=== PATIENT | male | born 1980 | race Two or more races ===

== ENCOUNTER 2021-09-18 13:03 | Emergency (ER) | payer MEDICAID, SELFPAY ==
[2021-09-18 15:15] VITALS: BP 168/116; PULSE 75; RESP 16; O2SAT 99; BMI 31.0
--- NOTE | 2021-09-18 15:49 | ED.EYEPROB ---
HPI - Eye Problem General Chief complaint: Eye Problems Stated complaint: piece of metal in eye Time Seen by Provider: 09/18/21 15:49 Source: patient Mode of arrival: ambulatory Limitations: no limitations History of Present Illness HPI Narrative: Patient is a 41 year old male presenting to the emergency department today with concern that he has something in his right eye. 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 Patient denies any dizziness, lightheadedness, abdominal pain, nausea, vomiting, fever, chills, blurry vision, double vision, loss of vision, chest pain, difficulty breathing, shortness of breath, back pain, night sweats, pain with urination, increased urinary frequency, increased urinary urgency, blood in his urine or stool, syncope or a near syncopal episode, recent trauma or falls, bowel incontinence, bladder incontinence, bowel retention, bladder retention, or any other complaints at this time. MD chief complaint: eye pain Onset (ago): day(s) (2) Onset description: gradual Duration: constant Location: right eye Eye Symptoms: pain and foreign body sensation Place: work Mechanism: none Severity: mild Severity scale (1-10): 3 If Pain, Quality: aching Related Data Previous Rx's Medication Instructions Recorded erythromycin 5 mg/gram (0.5 %) eye 0.5 inch OPHTHALMIC (EYE) QID 5 09/18/21 ointment Days #3.5 g Allergies Allergy/AdvReac Type Severity Reaction Status Date / Time shrimp Allergy Unknown SWELLING Unverified 04/05/20 16:38 Shrimp Flavor Allergy Unknown Uncoded 01/04/18 00:00 Review of Systems Constitutional: Constitutional: Reports no additional constitutional complaints, Denies chills, Denies fever(s) and Denies night sweats Eyes: Eyes: Reports no additional eye complaints, Denies blurry vision, Denies change in vision, Denies diplopia, Denies eye discharge, Denies loss of vision and Denies eye pain Comments: foreign body sensation ENT: Denies dizziness Cardiovascular: Cardiovascular: Reports no additional cardiovascular complaints, Denies chest pain, Denies lightheadedness, Denies Loss of Consciousness and Denies dyspnea Respiratory: Respiratory: Reports no additional respiratory complaints and Denies dyspnea Gastrointestinal: Gastrointestinal: Reports no additional gastrointestinal complaints, Denies abdominal pain, Denies melena, Denies hematochezia, Denies change in bowel habits and Denies change in stool character Genitourinary: Genitourinary: Reports no additional male genitourinary complaints, Denies hematuria, Denies oliguria, Denies difficulty urinating, Denies dysuria, Denies urinary frequency, Denies urinary hesitancy, Denies urinary incontinence and Denies urinary urgency Musculoskeletal: Musculoskeletal: Reports no additional musculoskeletal complaints, Denies numbness and Denies tingling Neurologic: Denies dizziness, Denies loss of vision, Denies numbness and Denies tingling Psychiatric: Psychiatric: Reports no additional psychiatric complaints Endocrine: Endocrine: Reports no additional endocrine complaints Hematologic/Lymphatic: Hematologic/Lymphatic: Reports no additional hematologic/lymphatic complaints Allergic/Immunologic: Allergic/Immunologic: Reports no additional allergic/immunologic complaints PMFSH Past Medical History Attestation statement: The following information was validated with the patient. Source: old records reviewed Medical History HTN (hypertension) Social History Social History Advance Directives: No Advance Directives Information Provided: No Physical Exam Vital Signs: Vital Signs: Last Vital Signs Pulse 75 09/18/21 15:15 Resp 16 09/18/21 15:15 BP 168/116 H 09/18/21 15:15 Pulse Ox 99 09/18/21 15:15 BMI result Body Mass Index 31.0 Const: General: cooperative, no acute distress, alert and awake Nutritional Appearance: well nourished Orientation/consciousness: patient oriented x3 Limitations: no limitations HENMT: Head: Yes normal to inspection and Yes atraumatic Ears: hearing grossly normal bilaterally and external ears normal General nose exam: Normal external nose present, no nasal discharge noted and no epistaxis Face and sinus: Yes normal facial exam, No abrasion and No laceration Mouth: Normal oral and palatal mucosa present, no drooling and no muffled voice Eyes: General: appearance normal, both eyes and all related structures Periorbital: periorbital findings normal Eyelids: Yes eyelids normal Conjunctivae: conjunctivae normal Pupils: Equal, round and reactive pupils present EOM: EOMs intact bilaterally Neck: Neck: Yes normal visual inspection, Yes full ROM and Yes no lymphadenopathy Chest: Chest palpation & inspection: normal inspection of the chest Resp: Effort & Inspection: normal respiratory effort and able to speak in complete sentences GI: Inspection: Yes normal to inspection Neuro: General: patient oriented x3 and moves all extremities Cranial nerves: Yes Equal, round and reactive pupils present Cognition (Neuro): normal cognition Motor exam (neuro): 5/5 motor strength present throughout Sensory Exam: Normal double simultaneous stimulation for sensation Coordination: [id number] test normal Extrem: General: Yes normal to inspection, Yes full ROM and Yes capillary refill normal Psych: Appearance: grossly normal Mental Status: mental status grossly normal Affect: normal affect Attitude: cooperative Thought process: Normal thought process present Thought content: Normal thought content present Insight: Good insight present (Psych) MDM - Eye Problem MDM Narrative Medical decision making narrative: Patient is a 41 year old male presenting to the emergency department today with right eye pain. Patient's physical exam was unremarkable including a normal cornea and no retained foreign bodies. However, the patient is experiencing a foreign body sensation with possible metal exposure, so I will cover with antibiotic eye ointment and have the patient follow up with an automotive sales specialist. I explained my physical exam findings to the patient. I answered all questions asked by the patient. I stressed the importance of the patient taking his/using medication as prescribed. I stressed the importance of the patient following up with his primary care provider. I stressed the importance of the patient returning to the emergency department immediately if his symptoms were to worsen or if he were to develop any dizziness, shortness of breath, difficulty breathing, chest pain, blurry vision, loss of vision, nausea, vomiting, abdominal pain, fever, chills, back pain, or any other complaints. Patient verbalized agreement and understanding with this treatment plan and discharge. Differential Diagnosis Differential diagnosis: Likely corneal abrasion, conjunctivitis and corneal ulcer Medical Records Attestation: I reviewed the patient's medical records. Discharge Plan Discharge Clinical Impression: Corneal abrasion Patient Disposition: Home, Self-Care Instructions: Corneal Abrasion (DC) Additional Instructions: Follow up with Ophthalmology. Follow up with your primary care provider. Return to the emergency department immediately if your symptoms worsen or if you develop any dizziness, shortness of breath, difficulty breathing, chest pain, blurry vision, loss of vision, nausea, vomiting, abdominal pain, fever, chills, back pain, or any other complaints. Prescriptions: New erythromycin 5 mg/gram (0.5 %) ointment 0.5 inch ophthalmic (eye) QID 5 Days Qty: 3.5 0RF Referrals: Anival Agarwal [Physician] - 2 days Print Language: Khmer
[2021-09-18] MEDS: Fluorescein Sodium STRIP 1 STRIP EYE-RIGHT (16:47)
[2021-09-18] MEDS: Tetracaine HCl/PF 0.5% Oph Sol 4 ML DROPS 2 DROP EYE-RIGHT (16:47)
== END 2021-09-18 16:50 | disposition home or self-care (01) ==
PROVIDERS: Emergency Provider Emergency Medicine
DX: S05.01XA Injury of conjunctiva and corneal abrasion without foreign body, right eye, initial encounter (principal); X58.XXXA Exposure to other specified factors, initial encounter; I10 Essential (primary) hypertension; Y93.9 Activity, unspecified; Y92.9 Unspecified place or not applicable; Y99.9 Unspecified external cause status
CPT/HCPCS: 99283; 99284

== ENCOUNTER 2021-12-19 14:44 | Outpatient (REF) | payer MEDICAID, SELFPAY ==
[2021-12-19 15:46] LABS: Hematocrit 38.2 % (42.0-52.0); Hemoglobin 12.9 g/dl (14.0-18.0); Mean Corpuscular HGB Conc 33.8 g/dl (31.0-36.0); Mean Platelet Volume 10.1 fL (9.4-12.4); Platelet Count 235 X10*3/uL (160-400); Red Cell Distribution Width 13.6 % (11.0-16.0); White Blood Count 5.4 X10*3/uL (4.8-10.8)
[2021-12-19 16:04] LABS: Estimated Average Glucose 114 mg/dL; Hemoglobin A1c % 5.6 %
[2021-12-19 16:19] LABS: Alanine Aminotransferase 40 U/L (0-40); Albumin Level 4.5 g/dL (3.5-5.0); Alkaline Phosphatase 60 U/L (39-117); Anion Gap 14 (12-20); Aspartate Amino Transferase 30 U/L (5-37); Bilirubin Total 0.7 mg/dL (0.0-1.0); Blood Urea Nitrogen 14 mg/dL (9-16); Calcium 9.6 mg/dL (8.4-10.2); Carbon Dioxide 25 mmol/L (22-29); Chloride 104 mmol/L (96-108); Cholesterol 238 mg/dL; Estimated Glomerular Filt Rate > 60; Glucose Random 82 mg/dL (60-115); HDL Cholesterol 44 mg/dL; LDL Cholesterol Calculated 173 mg/dl; Potassium 3.6 mmol/L (3.3-5.1); Sodium 139 mmol/L (135-145); Total Protein 8.2 g/dL (6.5-8.0); Triglycerides 105 mg/dL
[2021-12-19 16:25] LABS: Creatinine Urine 229.65 mg/dL; Microalbum/Creatinine Ratio Ur 19.5 ug/mg cr
[2021-12-19 16:41] LABS: Vitamin D 25-OH Total 25.8 ng/mL (>30)
[2021-12-20 02:17] LABS: CT PCR NOT DETECTED (Not Detect.); NG PCR NOT DETECTED (Not Detect.)
[2021-12-20 08:02] LABS: HIV AB/AG Nonreactive (Nonreactive); HIV Num 1 0.09 S/CO (0.00-0.99)
[2021-12-20 08:05] LABS: ~HepC Num1 0.09 S/CO (0.00-0.79); ~Hepatitis C Antibody Nonreactive (Nonreactive)
[2021-12-20 08:22] LABS: Syphilis Screen Nonreactive (Nonreactive)
== END 2021-12-19 14:45 | disposition home or self-care (01) ==
LOC: HO.LAB 14:44
PROVIDERS: PCP Nurse Practitioner Primary Care; Visit Provider Nurse Practitioner Primary Care
DX: Z13.220 Encounter for screening for lipoid disorders (principal); Z11.3 Encounter for screening for infections with a predominantly sexual mode of transmission; Z11.4 Encounter for screening for human immunodeficiency virus [HIV]; Z13.1 Encounter for screening for diabetes mellitus; I10 Essential (primary) hypertension
CPT/HCPCS: 80053; 80061; 82043; 82306; 83036; 85027; 86780; 86803; 87389; 87491; 87591

== ENCOUNTER 2023-03-10 12:42 | Emergency (ER) | payer MEDICAID, SELFPAY ==
--- NOTE | ~2023-03-10 | XR_ITS ---
EXAMINATION: XR RIBS, RIGHT, PA CHEST CLINICAL INFORMATION: 08/30/2013 chest radiographs. COMPARISON: None available. TECHNIQUE: 3 views of the right ribs were obtained along with a PA view of the chest. A skin marker was placed over the inferior right ribs. FINDINGS: Lungs are clear. No consolidation, pneumothorax, or pleural effusion. The cardiomediastinal silhouette and pulmonary vasculature are normal. Osseous structures are unremarkable. Ribs are intact. No fractures are identified. XR/XR ribs RT min 3V w CXR1V IMPRESSION: Unremarkable examination.
[2023-03-10 12:51] VITALS: BP 138/88; PULSE 100; RESP 19; TEMP 36.6; O2SAT 95; BMI 33.2
--- NOTE | 2023-03-10 12:51 | ED.ABDPAIN ---
HPI - Abdominal Pain General Chief Complaint: General Medical Stated Complaint: R Side Pain No Injury Time Seen by Provider: 03/10/23 14:27 Source: patient Mode of arrival: ambulatory Limitations: no limitations History of Present Illness HPI narrative: Patient comes to the emergency room complaining of 3 days of right-sided chest pain. Patient states it is point tenderness, worse with deep inspiration laughing or leaning towards the left. Patient states that he has not been having any URI symptoms, denies shortness of breath but does have discomfort with deep inspirations. Patient states that he traveled to [place] 2 weeks ago. Related Data Previous Rx's Medication Instructions Recorded erythromycin 5 mg/gram (0.5 %) eye 0.5 inch ophthalmic (eye) QID 5 09/18/21 ointment days #3.5 grams ibuprofen 600 mg tablet 600 mg PO TID PRN fever or pain 03/10/23 #14 tabs Allergies Allergy/AdvReac Type Severity Reaction Status Date / Time shrimp Allergy Unknown SWELLING Verified 03/10/23 12:51 Shrimp Flavor Allergy Unknown Swelling Uncoded 03/10/23 12:51 Review of Systems Review of Systems Constitutional : No Weight loss, No Fever, No Chills, No Night Sweats, No Fatigue, No Malaise ENT/Mouth : No Hearing loss, No Ear Pain, No Nasal Congestion, No Sinus Pain, No Hoarseness, No sore throat, No Rhinorrhea, No Swallowing Difficulty Eyes: No Eye Pain, No Swelling, No Redness, No Foreign Body, No Discharge, No Vision Changes Cardiovascular : Patient complaining of point tenderness underneath the right nipple, No Chest Pain, No SOB, No Dyspnea on Exertion, No Orthopnea, No Edema, No Palpitations Respiratory : No Cough, No Sputum, No Wheezing, No Smoke Exposure, No Dyspnea Gastrointestinal : No Nausea, No Vomiting, No Diarrhea, No Constipation, No abdominal Pain, No Hematochezia, No Melena Genitourinary : no irregular bleeding, No Dysuria, No Urinary Frequency, No Hematuria, No Urinary Incontinence, No Urgency, No Flank Pain, No Urinary Flow Changes, No Hesitancy Musculoskeletal : No joint pain, No Myalgias, No Joint Swelling Skin : No Skin Lesions, No rash Neuro : No Weakness, No Numbness, No Paresthesias, No Loss of Consciousness, No Dizziness, No Headache Psych : No Anxiety/Panic, No Depression, No SI/HI/AH/VH, No Social Issues, Heme/Lymph: No Bruising, No Bleeding,No Lymphadenopathy Endocrine : No Polyuria, No Polydipsia, No Temperature Intolerance PENDING SALE TO [facility] Past Medical History Medical History HTN (hypertension) Social History Social History Advance Directives: No Advance Directives Information Provided: Yes Physical Exam ED Vital Signs: Vital Signs - 24 hr 03/10/23 12:51 Temperature 98 F Pulse Rate 100 Respiratory Rate 19 Blood Pressure 138/88 Pulse Oximetry 95 Oxygen Delivery Method Room Air BMI result Body Mass Index 33.2 Const Other: Appearance: Alert. Oriented X3. No acute distress. Eyes: Pupils equal, round and reactive to light. ENT: Pharynx normal. Neck: Normal inspection. Neck supple. No lymph nodes noted. No crepitus CVS: Normal heart rate and rhythm. Pulses normal. Normal S1 and S2 Respiratory: No respiratory distress. Breath sounds normal. No Wheezing. No rales Abdomen: Soft and nontender. No rigidity. No distention. Skin: Skin warm and dry. Normal skin color. Normal skin turgor. Extremities: No lower extremity edema. No Lacerations. No Rash Neuro: Oriented X 3. No motor deficit. No sensory deficit. Moving all extremities. No slurred speech. CN 2 through 12 grossly intact Psych: calm, cooperative, normal affect Course Course Course Narrative: RME: 43yo M w/PMHx HTN c/o RUQ abdominal pain x3 days, worse with deep breathing or laughing. Admits recently traveled to [place] 2 weeks ago. Admits to mild SOB. Denies N/V/D, fall/injury, hematuria, abdominal pain. Prior cigarette smoker, denies hx clots No appreciable rash, erythema or reproducible tenderness. Abdomen soft/nontender. No CVAT. EKG, Labs, UA, CXR ordered Full HPI, ROS and PE to be performed by primary ED provider. Medical Decision Making Medical Decision Making MDM Narrative: -my interpretation of labs: Normal white blood cell count, chemistry unremarkable -my interpretation of rib/chest x-ray: No infiltrates, no rib fractures -my interpretation EKG: Normal sinus rhythm, heart rate 95, no ST segment depression or elevation, no T-wave inversion, QTC 469 -D-dimer negative, troponin negative -patient's source of pain likely musculoskeletal -patient was given 1 dose of IM Toradol Differential Diagnosis Differential Diagnoses: The differential diagnosis associated with the presentation includes (Costochondritis, pleurisy, PE, musculoskeletal , pneumonia) Admission/Observation Consideration of admission/observation: Escalation of care including admission/observation considered (Patient has history of long travel, chest pain, admission being considered) Lab Data MDM Lab Attestation statement: I reviewed the patient's lab results. 03/10/23 13:08 03/10/23 13:08 Labs: Lab Results 03/10/23 03/10/23 03/10/23 Range/Units 13:08 13:08 13:08 WBC 7.4 (4.8-10.8) X10*3/uL RBC 4.88 (4.60-5.80) X10*6/uL Hgb 14.1 (14.0-18.0) g/dl Hct 41.2 L (42.0-52.0) % MCV 84.4 (80.0-98.0) fL MCH 28.9 (27.0-33.0) pg MCHC 34.2 (31.0-36.0) g/dl RDW 13.2 (11.0-16.0) % Plt Count 236 (160-400) X10*3/uL MPV 10.4 (9.4-12.4) fL Immature Gran % (Auto) 0.4 (0.0-0.4) % Neut % (Auto) 57.0 (45-73) % Lymph % (Auto) 31.7 (20-40) % Chaves % (Auto) 9.1 (2-11) % Eos % (Auto) 1.0 (0-4) % Baso % (Auto) 0.8 (0-2) % Lymph # (Auto) 2.3 (1.2-4.9) X10*3/uL Chaves # (Auto) 0.7 (0.1-1.2) X10*3/uL Eos # (Auto) 0.1 (0.0-0.4) X10*3/uL Baso # (Auto) 0.1 (0.0-0.2) X10*3/uL Abs Immat Gran (auto) 0.03 (0.00-0.03) X10*3/uL Absolute Neuts (auto) 4.2 (2.0-8.3) x10*3/uL Absolute Nucleated RBC 0.000 (0.0-0.012) X10*3/uL Nucleated RBC % (auto) 0.0 (0.0-0.2) /100WBC PT (11.1-13.3) SEC INR (0.9-1.1) D-Dimer High Sensitivty NG/ML Sodium 141 (135-145) mmol/L Potassium 3.7 (3.3-5.1) mmol/L Chloride 105 (96-108) mmol/L Carbon Dioxide 27 (22-29) mmol/L Anion Gap 13 (12-20) BUN 19 H (9-16) mg/dL Creatinine 1.03 (0.5-1.4) mg/dL Estim Creat Clear Calc 106.6 Estimated GFR > 60 Random Glucose 126 H (60-115) mg/dL Calcium 10.2 D (8.4-10.2) mg/dL Total Bilirubin 0.5 (0.0-1.0) mg/dL Direct Bilirubin 0.2 (0.0-0.5) mg/dL AST 25 (5-37) U/L ALT 31 (0-40) U/L Alkaline Phosphatase 56 (39-117) U/L Troponin I High Sens < 2.7 (<3.5-35.0) ng/L B-Natriuretic Peptide (<100) pg/mL Total Protein 8.7 H (6.5-8.0) g/dL Albumin 4.7 (3.5-5.0) g/dL Lipase 32 (8-78) U/L 03/10/23 03/10/23 Range/Units 13:08 13:08 WBC (4.8-10.8) X10*3/uL RBC (4.60-5.80) X10*6/uL Hgb (14.0-18.0) g/dl Hct (42.0-52.0) % MCV (80.0-98.0) fL MCH (27.0-33.0) pg MCHC (31.0-36.0) g/dl RDW (11.0-16.0) % Plt Count (160-400) X10*3/uL MPV (9.4-12.4) fL Immature Gran % (Auto) (0.0-0.4) % Neut % (Auto) (45-73) % Lymph % (Auto) (20-40) % Chaves % (Auto) (2-11) % Eos % (Auto) (0-4) % Baso % (Auto) (0-2) % Lymph # (Auto) (1.2-4.9) X10*3/uL Chaves # (Auto) (0.1-1.2) X10*3/uL Eos # (Auto) (0.0-0.4) X10*3/uL Baso # (Auto) (0.0-0.2) X10*3/uL Abs Immat Gran (auto) (0.00-0.03) X10*3/uL Absolute Neuts (auto) (2.0-8.3) x10*3/uL Absolute Nucleated RBC (0.0-0.012) X10*3/uL Nucleated RBC % (auto) (0.0-0.2) /100WBC PT 11.7 (11.1-13.3) SEC INR 1.0 (0.9-1.1) D-Dimer High Sensitivty < 150 NG/ML Sodium (135-145) mmol/L Potassium (3.3-5.1) mmol/L Chloride (96-108) mmol/L Carbon Dioxide (22-29) mmol/L Anion Gap (12-20) BUN (9-16) mg/dL Creatinine (0.5-1.4) mg/dL Estim Creat Clear Calc Estimated GFR Random Glucose (60-115) mg/dL Calcium (8.4-10.2) mg/dL Total Bilirubin (0.0-1.0) mg/dL Direct Bilirubin (0.0-0.5) mg/dL AST (5-37) U/L ALT (0-40) U/L Alkaline Phosphatase (39-117) U/L Troponin I High Sens (<3.5-35.0) ng/L B-Natriuretic Peptide < 10 (<100) pg/mL Total Protein (6.5-8.0) g/dL Albumin (3.5-5.0) g/dL Lipase (8-78) U/L Independent Interpretation I performed an independent interpretation of an: Plain X-Ray Radiology Impression Discussion of test interpretation with radiology: I have reviewed the radiologist's reading. Radiologist Impression: FINDINGS: Lungs are clear. No consolidation, pneumothorax, or pleural effusion. The cardiomediastinal silhouette and pulmonary vasculature are normal. Osseous structures are unremarkable. Ribs are intact. No fractures are identified. XR/XR ribs RT min 3V w CXR1V IMPRESSION: Unremarkable examination. Chronic Conditions Patient?s care impacted by: Hypertension Discharge Plan Discharge Clinical Impression: Atypical chest pain Patient Disposition: Home, Self-Care Instructions: Chest Wall Pain (ED) Additional Instructions: Please follow-up with your primary care physician tomorrow. If you have any worsening or new symptoms, please return to the emergency room or call 911 Prescriptions: New ibuprofen 600 mg tablet 600 mg PO TID PRN (Reason: fever or pain) Qty: 14 0RF No Action erythromycin 5 mg/gram (0.5 %) ointment 0.5 inch ophthalmic (eye) QID 5 Days Qty: 3.5 0RF
--- NOTE | 2023-03-10 12:54 | ECG_ITS ---
Test Reason : sob Blood Pressure : / mmHG Vent. Rate : 095 BPM Atrial Rate : 095 BPM P-R Int : 138 ms QRS Dur : 084 ms QT Int : 374 ms P-R-T Axes : 057 -14 007 degrees QTc Int : 469 ms Normal sinus rhythm Minimal voltage criteria for LVH, may be normal variant ( R in aVL ) Borderline ECG When compared with ECG of 17-NOV-2017 15:59, Heart rate has increased Referred By: Skye Tom Electronically Signed By:RIANA SANDOVAL
[2023-03-10 13:14] LABS: MANUAL DIFF FLAG NO
[2023-03-10 13:20] LABS: Basophils Absolute Auto 0.1 X10*3/uL (0.0-0.2); Basophils Percent Auto 0.8 % (0-2); Eosinophils Absolute Auto 0.1 X10*3/uL (0.0-0.4); Hematocrit 41.2 % (42.0-52.0); Hemoglobin 14.1 g/dl (14.0-18.0); Imm Gran Abs Auto 0.03 X10*3/uL (0.00-0.03); Imm Gran Pct Auto 0.4 % (0.0-0.4); Lymphocytes Absolute Auto 2.3 X10*3/uL (1.2-4.9); Lymphocytes Percent Auto 31.7 % (20-40); Mean Corpuscular HGB Conc 34.2 g/dl (31.0-36.0); Mean Corpuscular Hemoglobin 28.9 pg (27.0-33.0); Mean Corpuscular Volume 84.4 fL (80.0-98.0); Mean Platelet Volume 10.4 fL (9.4-12.4); Monocytes Absolute Auto 0.7 X10*3/uL (0.1-1.2); Monocytes Percent Auto 9.1 % (2-11); Neutrophils Absolute Auto 4.2 x10*3/uL (2.0-8.3); Platelet Count 236 X10*3/uL (160-400); Red Blood Count 4.88 X10*6/uL (4.60-5.80); Red Cell Distribution Width 13.2 % (11.0-16.0); White Blood Count 7.4 X10*3/uL (4.8-10.8)
[2023-03-10 13:25] LABS: Prothrombin Time 11.7 SEC (11.1-13.3)
[2023-03-10 13:35] LABS: Alanine Aminotransferase 31 U/L (0-40); Albumin Level 4.7 g/dL (3.5-5.0); Alkaline Phosphatase 56 U/L (39-117); Anion Gap 13 (12-20); Aspartate Amino Transferase 25 U/L (5-37); Bilirubin Direct 0.2 mg/dL (0.0-0.5); Bilirubin Total 0.5 mg/dL (0.0-1.0); Blood Urea Nitrogen 19 mg/dL (9-16); Calcium 10.2 mg/dL (8.4-10.2); Carbon Dioxide 27 mmol/L (22-29); Chloride 105 mmol/L (96-108); Creatinine Clr Calc Pharmacy 106.6; Estimated Glomerular Filt Rate > 60; Glucose Random 126 mg/dL (60-115); Lipase 32 U/L (8-78); Potassium 3.7 mmol/L (3.3-5.1); Sodium 141 mmol/L (135-145); Total Protein 8.7 g/dL (6.5-8.0)
[2023-03-10 13:40] LABS: B Type Natriuretic Peptide < 10 pg/mL (<100)
[2023-03-10 13:43] LABS: Troponin-I High Sensitivity < 2.7 ng/L (<3.5-35.0)
[2023-03-10 14:00] VITALS: BP 129/79; PULSE 80; RESP 16; O2SAT 97
--- NOTE | 2023-03-10 14:45 | PC.NURSE ---
reports r sided c/p x3 days. no sob/queen/dizziness. no n/v/f. he describes the pain as sharp.
[2023-03-10 14:56] LABS: D Dimer High Sensitivity < 150 NG/ML
--- NOTE | 2023-03-10 15:30 | PC.NURSE ---
cardiac work-up negative, pt cleared for discharge.
[2023-03-10] MEDS: Ketorolac Tromethamine 60 MG/2 ML VIAL IM (15:37)
== END 2023-03-10 15:45 | disposition home or self-care (01) ==
PROVIDERS: Physician Assistant; Emergency Provider Emergency Medicine; PCP Nurse Practitioner Primary Care
DX: R07.89 Other chest pain (principal); R06.02 Shortness of breath; I10 Essential (primary) hypertension
CPT/HCPCS: 36415; 71101; 80048; 80076; 83690; 83880; 84484; 85025; 85379; 85610; 93005; 96372; 99284; J1885

== ENCOUNTER 2023-07-01 22:42 | Emergency (ER) | payer SELFPAY ==
--- NOTE | 2023-07-01 | ECG_ITS ---
Test Reason : CHEST PAIN Blood Pressure : / mmHG Vent. Rate : 083 BPM Atrial Rate : 083 BPM P-R Int : 134 ms QRS Dur : 088 ms QT Int : 378 ms P-R-T Axes : 046 005 000 degrees QTc Int : 444 ms Normal sinus rhythm Normal ECG When compared with ECG of 10-MAR-2023 13:14, No significant change was found Referred By: Generic ED Physician Electronically Signed By:Heri Reza
--- NOTE | ~2023-07-01 | XR_ITS ---
EXAMINATION: XR CHEST CLINICAL INFORMATION: Pain. COMPARISON: Previous chest x-ray February 2022 TECHNIQUE: 2 views of the chest were obtained. FINDINGS: No significant abnormality is noted involving the heart, lungs, mediastinum, bony thorax or soft tissues. XR/XR chest 2V IMPRESSION: Unremarkable examination.
[2023-07-01 22:52] VITALS: BP 111/68; PULSE 87; RESP 16; TEMP 37.1; O2SAT 95; BMI 31.0
--- NOTE | 2023-07-01 23:10 | ED.NEUROSD ---
HPI - Neuro Symptoms/Deficit General Chief Complaint: Neuro Symptoms/Deficit Stated Complaint: NUMBNESS CRAMPING IN ARMS Time Seen by Provider: 07/01/23 22:59 Source: patient and RN notes reviewed Mode of arrival: EMS Limitations: no limitations History of Present Illness HPI Narrative: Pt is a 43yo male who presents to the ED with hot flashes, nausea, and a right hand cramp. Pt states he was asleep and woke up at around 1630 with hot flashes and nausea. He notes associated right hand cramping. He notes resolution of hand cramp and improvement of other sx since arrival in ED. He reports vomiting and having an episode of diarrhea earlier in the day. He also notes a dry mouth. Denies cp, SOB, abd. pain, or headaches. Notes a hx of anxiety and one similar incident awhile ago. Related Data Previous Rx's Medication Instructions Recorded erythromycin 5 mg/gram (0.5 %) eye 0.5 inch ophthalmic (eye) QID 5 09/18/21 ointment days #3.5 grams ibuprofen 600 mg tablet 600 mg PO TID PRN fever or pain 03/10/23 #14 tabs Allergies Allergy/AdvReac Type Severity Reaction Status Date / Time shrimp Allergy Unknown SWELLING Verified 05/21/23 14:32 Shrimp Flavor Allergy Unknown Swelling Uncoded 05/21/23 14:32 Review of Systems Constitutional: Constitutional: Denies chills, Reports excessive sweating (with hot flash), Denies fever(s) and Denies headache(s) Eyes: Eyes: Denies blurry vision ENT: Denies dizziness, Reports dry mouth and Denies headache(s) Cardiovascular: Cardiovascular: Denies chest pain and Denies dyspnea Respiratory: Respiratory: Denies dyspnea Gastrointestinal: Gastrointestinal: Denies abdominal pain, Denies constipation, Reports diarrhea, Reports nausea and Reports vomiting Musculoskeletal: Musculoskeletal: Reports arthralgias (right hand cramps) Neurologic: Denies dizziness, Denies headache(s) and Denies tremor(s) Psychiatric: Psychiatric: Reports anxiety Endocrine: Endocrine: Reports excessive sweating (with hot flash) PMFSH Past Medical History Medical History HTN (hypertension) Social History Social History (System 05/21/23 @ 14:32 by Delores Greenwood) Advance Directives: No Advance Directives Information Provided: No Physical Exam Vital Signs: Vital Signs: Last Vital Signs Temp 98.7 F 07/01/23 22:52 Pulse 87 07/01/23 22:52 Resp 16 07/01/23 22:52 BP 111/68 07/01/23 22:52 Pulse Ox 95 07/01/23 22:52 O2 Del Method Room Air 07/01/23 22:52 BMI result Body Mass Index 31.0 Const: General: cooperative, no acute distress, alert and awake Orientation/consciousness: patient oriented x3 HEENT: Head: Yes normal to inspection Ears: hearing grossly normal bilaterally General nose exam: Normal external nose present Face and sinus: Yes dry mucous membranes Resp: Effort & Inspection: normal respiratory effort and able to speak in complete sentences Auscultation: clear to auscultation bilaterally Cardio: Rate: regular rate Rhythm: regular rhythm Neuro: General: patient oriented x3 and CN's II-XI intact bilaterally Motor exam (neuro): 5/5 motor strength present throughout Extrem: General: Yes normal to inspection Right upper extremity: normal to inspection Left upper extremity: normal to inspection Medications Administered Generic Name Dose Route Start Last Admin Trade Name Freq PRN Reason Stop Dose Admin Sodium Chloride 1,000 mls @ 999 mls/hr 07/02/23 00:45 07/02/23 00:57 Ns IV 07/02/23 01:45 999 mls/hr .Q1H1M ROSANA Administration Discontinued Medications Generic Name Dose Route Start Last Admin Trade Name Freq PRN Reason Stop Dose Admin Diphenhydramine HCl 25 mg 07/02/23 00:43 07/02/23 00:56 Diphenhydramine Hcl 50 Mg/Ml Vial IVPUSH 07/02/23 00:44 25 mg ONCE ONE Administration Metoclopramide HCl 10 mg 07/02/23 00:43 07/02/23 00:56 Metoclopramide Hcl 10 Mg/2 Ml Vial IVPUSH 07/02/23 00:44 10 mg ONCE ONE Administration Medical Decision Making Medical Decision Making [facility] Narrative: 43-year-old male presents for evaluation of right arm cramping, dizziness, headache and hot flashes. His history appears most consistent anxiety, his symptoms resolved spontaneously. Denies having had any chest pain or shortness of breath currently or while he is experiencing his other symptoms. His EKG is nonischemic without arrhythmia. Plan for basic labs including a troponin, but I have a low suspicion for ACS. Will check for electrolyte abnormalities that could explain the patient's cramping symptoms Differential Diagnosis Differential Diagnoses: The differential diagnosis associated with the presentation includes (gastroenteritis, panic attack, flu, COVID, food poisoning) Lab Data 07/01/23 23:24 07/01/23 23:24 Labs: Lab Results 07/01/23 Range/Units 23:24 WBC 9.6 (4.8-10.8) X10*3/uL RBC 4.93 (4.60-5.80) X10*6/uL Hgb 14.1 (14.0-18.0) g/dl Hct 41.3 L (42.0-52.0) % MCV 83.8 (80.0-98.0) fL MCH 28.6 (27.0-33.0) pg MCHC 34.1 (31.0-36.0) g/dl RDW 13.2 (11.0-16.0) % Plt Count 219 (160-400) X10*3/uL MPV 10.2 (9.4-12.4) fL Immature Gran % (Auto) 0.2 (0.0-0.4) % Neut % (Auto) 85.1 H (45-73) % Lymph % (Auto) 7.1 L (20-40) % Shackelford % (Auto) 6.9 (2-11) % Eos % (Auto) 0.3 (0-4) % Baso % (Auto) 0.4 (0-2) % Lymph # (Auto) 0.7 L (1.2-4.9) X10*3/uL Shackelford # (Auto) 0.7 (0.1-1.2) X10*3/uL Eos # (Auto) 0.0 (0.0-0.4) X10*3/uL Baso # (Auto) 0.0 (0.0-0.2) X10*3/uL Abs Immat Gran (auto) 0.02 (0.00-0.03) X10*3/uL Absolute Neuts (auto) 8.2 (2.0-8.3) x10*3/uL Absolute Nucleated RBC 0.000 (0.0-0.012) X10*3/uL Nucleated RBC % (auto) 0.0 (0.0-0.2) /100WBC PT 12.3 (11.1-13.3) SEC INR 1.0 (0.9-1.1) APTT 29.7 (26.0-36.4) SEC Sodium 140 (135-145) mmol/L Potassium 3.3 (3.3-5.1) mmol/L Chloride 104 (96-108) mmol/L Carbon Dioxide 26 (22-29) mmol/L Anion Gap 13 (12-20) BUN 16 (9-16) mg/dL Creatinine 0.92 (0.5-1.4) mg/dL Estim Creat Clear Calc 115.4 Estimated GFR > 60 Random Glucose 136 H (60-115) mg/dL Calcium 9.2 D (8.4-10.2) mg/dL Total Bilirubin 0.7 (0.0-1.0) mg/dL AST 19 (5-37) U/L ALT 17 (0-40) U/L Alkaline Phosphatase 54 (39-117) U/L Troponin I High Sens < 2.7 (<3.5-35.0) ng/L Total Protein 8.1 H (6.5-8.0) g/dL Albumin 4.4 (3.5-5.0) g/dL Lipase 20 (8-78) U/L Independent Interpretation I performed an independent interpretation of an: EKG (Normal sinus rhythm with rate of 83 beats per minute. No ectopy or ischemic changes) Discharge Plan Discharge Clinical Impression: Dizziness, Paresthesia Patient Disposition: Home, Self-Care Instructions: Dizziness (ED) Additional Instructions: Your workup in the emergency department today was reassuring. Some fluids or blood work, EKG Stay well hydrated. Follow-up with your primary doctor Return for new or worsening symptoms Prescriptions: No Action erythromycin 5 mg/gram (0.5 %) ointment 0.5 inch ophthalmic (eye) QID 5 Days Qty: 3.5 0RF ibuprofen 600 mg tablet 600 mg PO TID PRN (Reason: fever or pain) Qty: 14 0RF
[2023-07-01 23:28] LABS: MANUAL DIFF FLAG NO
[2023-07-01 23:30] LABS: Basophils Percent Auto 0.4 % (0-2); Eosinophils Percent Auto 0.3 % (0-4); Hematocrit 41.3 % (42.0-52.0); Hemoglobin 14.1 g/dl (14.0-18.0); Imm Gran Abs Auto 0.02 X10*3/uL (0.00-0.03); Imm Gran Pct Auto 0.2 % (0.0-0.4); Lymphocytes Absolute Auto 0.7 X10*3/uL (1.2-4.9); Lymphocytes Percent Auto 7.1 % (20-40); Mean Corpuscular HGB Conc 34.1 g/dl (31.0-36.0); Mean Corpuscular Hemoglobin 28.6 pg (27.0-33.0); Mean Corpuscular Volume 83.8 fL (80.0-98.0); Mean Platelet Volume 10.2 fL (9.4-12.4); Monocytes Absolute Auto 0.7 X10*3/uL (0.1-1.2); Monocytes Percent Auto 6.9 % (2-11); Neutrophils Absolute Auto 8.2 x10*3/uL (2.0-8.3); Neutrophils Percent Auto 85.1 % (45-73); Platelet Count 219 X10*3/uL (160-400); Red Blood Count 4.93 X10*6/uL (4.60-5.80); Red Cell Distribution Width 13.2 % (11.0-16.0); White Blood Count 9.6 X10*3/uL (4.8-10.8)
[2023-07-01 23:38] LABS: Prothrombin Time 12.3 SEC (11.1-13.3)
[2023-07-01 23:40] LABS: Partial Thromboplastin Time 29.7 SEC (26.0-36.4)
[2023-07-01 23:59] LABS: Alanine Aminotransferase 17 U/L (0-40); Albumin Level 4.4 g/dL (3.5-5.0); Alkaline Phosphatase 54 U/L (39-117); Anion Gap 13 (12-20); Aspartate Amino Transferase 19 U/L (5-37); Bilirubin Total 0.7 mg/dL (0.0-1.0); Blood Urea Nitrogen 16 mg/dL (9-16); Calcium 9.2 mg/dL (8.4-10.2); Carbon Dioxide 26 mmol/L (22-29); Chloride 104 mmol/L (96-108); Creatinine Clr Calc Pharmacy 115.4; Estimated Glomerular Filt Rate > 60; Glucose Random 136 mg/dL (60-115); Lipase 20 U/L (8-78); Potassium 3.3 mmol/L (3.3-5.1); Sodium 140 mmol/L (135-145); Total Protein 8.1 g/dL (6.5-8.0)
[2023-07-02 00:06] LABS: Troponin-I High Sensitivity < 2.7 ng/L (<3.5-35.0)
[2023-07-02] MEDS: diphenhydrAMINE HCL 50 MG/ML VIAL 25 MG IVPUSH (00:56)
[2023-07-02] MEDS: Metoclopramide HCl 10 MG/2 ML VIAL IVPUSH (00:56)
[2023-07-02] MEDS: 0.9 % Sodium Chloride 1,000 ML 999 ML IV (00:57)
--- NOTE | 2023-07-02 01:31 | PC.NURSE ---
pt medicated per MAR
--- NOTE | 2023-07-02 01:43 | PC.NURSE ---
pt assessed, repoprted nausea and abd pain, medicated per MAR
== END 2023-07-02 01:56 | disposition home or self-care (01) ==
PROVIDERS: Physician Assistant; Emergency Provider Internal Medicine
DX: R42 Dizziness and giddiness (principal); R20.2 Paresthesia of skin; M79.601 Pain in right arm; R51.9 Headache, unspecified; R61 Generalized hyperhidrosis; F41.9 Anxiety disorder, unspecified; I10 Essential (primary) hypertension
CPT/HCPCS: 36415; 71046; 80053; 83690; 84484; 85025; 85610; 85730; 93005; 96361; 96374; 96375; 99284; J1200; J2765

== ENCOUNTER → 2023-07-01 23:00 | Outpatient (BNV) | payer SELFPAY | PROVIDERS: Emergency Provider Internal Medicine; Visit Provider Internal Medicine Cardiovascular Disease | DX: R07.9 Chest pain, unspecified (principal) | CPT/HCPCS: 93010 ==

== ENCOUNTER 2023-11-11 10:25 | Outpatient (REF) | payer MEDICAID, SELFPAY ==
[2023-11-11 10:52] LABS: MANUAL DIFF FLAG NO
[2023-11-11 11:50] LABS: Basophils Absolute Auto 0.1 X10*3/uL (0.0-0.2); Basophils Percent Auto 1.6 % (0-2); Eosinophils Percent Auto 0.7 % (0-4); Hematocrit 39.9 % (42.0-52.0); Hemoglobin 13.7 g/dl (14.0-18.0); Imm Gran Abs Auto 0.01 X10*3/uL (0.00-0.03); Imm Gran Pct Auto 0.2 % (0.0-0.4); Lymphocytes Absolute Auto 2.4 X10*3/uL (1.2-4.9); Lymphocytes Percent Auto 53.1 % (20-40); Mean Corpuscular HGB Conc 34.3 g/dl (31.0-36.0); Mean Corpuscular Hemoglobin 28.8 pg (27.0-33.0); Mean Platelet Volume 10.7 fL (9.4-12.4); Monocytes Absolute Auto 0.4 X10*3/uL (0.1-1.2); Monocytes Percent Auto 9.3 % (2-11); Neutrophils Absolute Auto 1.6 x10*3/uL (2.0-8.3); Neutrophils Percent Auto 35.1 % (45-73); Platelet Count 259 X10*3/uL (160-400); Red Blood Count 4.75 X10*6/uL (4.60-5.80); Red Cell Distribution Width 13.4 % (11.0-16.0); White Blood Count 4.5 X10*3/uL (4.8-10.8)
[2023-11-11 12:12] LABS: Estimated Average Glucose 114 mg/dL; Hemoglobin A1C 126.8344 umol/L; Hemoglobin A1c % 5.6 % (<6.0)
[2023-11-11 12:18] LABS: Creatinine Urine 181.15 mg/dL
[2023-11-11 12:28] LABS: Alanine Aminotransferase 21 U/L (0-40); Albumin Level 4.6 g/dL (3.5-5.0); Alkaline Phosphatase 51 U/L (39-117); Anion Gap 11 (12-20); Aspartate Amino Transferase 21 U/L (5-37); Bilirubin Total 0.5 mg/dL (0.0-1.0); Blood Urea Nitrogen 15 mg/dL (9-16); Calcium 9.9 mg/dL (8.4-10.2); Carbon Dioxide 28 mmol/L (22-29); Chloride 103 mmol/L (96-108); Cholesterol 198 mg/dL (<200); Estimated Glomerular Filt Rate > 60; Glucose Random 88 mg/dL (60-115); HDL Cholesterol 38 mg/dL (>40); LDL Cholesterol Calculated 144 mg/dL (<100); Potassium 3.4 mmol/L (3.3-5.1); Sodium 139 mmol/L (135-145); Total Protein 8.5 g/dL (6.5-8.0); Triglycerides 80 mg/dL (<150)
[2023-11-15 05:54] LABS: VITAMIN D (1,25 OH) D3 48 pg/mL; Vit D (1,25-Dihydroxy) Total 48 pg/mL (18-72); Vitamin D (1,25 OH) D2 <8 pg/mL
== END 2023-11-11 10:26 | disposition home or self-care (01) ==
LOC: HO.LAB 10:25
PROVIDERS: PCP Nurse Practitioner Primary Care; Visit Provider Nurse Practitioner Primary Care
DX: Z00.00 Encounter for general adult medical examination without abnormal findings (principal); Z13.220 Encounter for screening for lipoid disorders; I10 Essential (primary) hypertension
CPT/HCPCS: 36415; 80053; 80061; 82043; 82570; 82652; 83036; 85025

== ENCOUNTER 2024-06-08 06:19 | Day surgery (SDC) | payer OTHER, SELFPAY ==
[2024-06-06 13:27] VITALS: BMI 32.6
--- NOTE | 2024-06-07 08:45 | HO.ANESPROP2 ---
Documented by User: Lelo Sandoval NP 06/07/24 08:45 HPI - Anesthesia Eval Consult details Narrative: 44yo M for Colonoscopy [facility] Past Medical History Medical History HTN (hypertension) Surgical History Surgical History No pertinent past surgical history Social History Social History Household Members: Spouse Are you a primary health care marketing specialist to a significant other at home: No Do you presently have visiting nurse or other home services: No Patient Tobacco Use Status: Former Tobacco user Use of substances other than those prescribed or required for medical reasons: No Have you been hit, kicked, punched, or otherwise hurt by someone within the past year? If so, by whom?: No Are you DNR?: No Advance Directives: No Advance Directives Information Provided: Yes Recently lost weight without trying: No Nutrition Risks: No Nutritional Risk Meds Allergies Allergy/AdvReac Type Severity Reaction Status Date / Time shrimp Allergy Intermediate SWELLING Verified 06/06/24 13:24 Home Medications ?Medication ?Instructions ?Recorded ?Confirmed ?Last Taken ?Type cholecalciferol (vitamin D3) 50 50 mcg PO DAILY 06/06/24 06/06/24 Unknown History mcg (2,000 unit) capsule lisinopril 20 1 tab PO DAILY 06/06/24 06/08/24 06/08/24 05:30 History mg-hydrochlorothiazide 25 mg tablet melatonin 1 mg tablet 1 mg PO DAILY 06/06/24 06/06/24 Unknown History Exam Height,Weight and Vital Signs: Height 5 ft 9 in Weight 100.244 kg Assessment and Plan Assessment Anesthesia Assessment: Chart Reviewed Documented by User: Wilver Freed MD 06/08/24 07:16 [facility] Past Medical History Medical History HTN (hypertension) Family History Family history of problems with anesthesia: No Surgical History Surgical History No pertinent past surgical history History of Problems with Anesthesia: No Social History Social History Household Members: Spouse Are you a primary health care marketing specialist to a significant other at home: No Do you presently have visiting nurse or other home services: No Patient Tobacco Use Status: Former Tobacco user Use of substances other than those prescribed or required for medical reasons: No Have you been hit, kicked, punched, or otherwise hurt by someone within the past year? If so, by whom?: No Are you DNR?: No Advance Directives: No Advance Directives Information Provided: Yes Recently lost weight without trying: No Nutrition Risks: No Nutritional Risk Meds Allergies Allergy/AdvReac Type Severity Reaction Status Date / Time shrimp Allergy Intermediate SWELLING Verified 06/06/24 13:24 Home Medications ?Medication ?Instructions ?Recorded ?Confirmed ?Last Taken ?Type cholecalciferol (vitamin D3) 50 50 mcg PO DAILY 06/06/24 06/06/24 Unknown History mcg (2,000 unit) capsule lisinopril 20 1 tab PO DAILY 06/06/24 06/08/24 06/08/24 05:30 History mg-hydrochlorothiazide 25 mg tablet melatonin 1 mg tablet 1 mg PO DAILY 06/06/24 06/06/24 Unknown History Exam Airway Mallampati Class: Patient Non-Cooperative TM Dist: >3cm Assessment and Plan Assessment Anesthesia Assessment: Anesthesia Plan Discussed Final Anesthetic Review Family History of Problems with Anesthesia: No History of Problems with Anesthesia: No NPO: Yes ASA Class: II Final Preanesthetic Review: No Changes in Pt Med Stat, Meds/Allgs Chart Reviewed, Consent Obtained/Reviewed and Anes Risks/Benef Reviewed Patient Risk: Low Procedure Risk: Low Anesthetic Plan Anesthetic Plan: TIVA Disposition: Standard PACU
[2024-06-08 06:27] VITALS: BMI 31.6
[2024-06-08 06:43] VITALS: BP 127/87; PULSE 74; RESP 16; TEMP 36.6; O2SAT 98
[2024-06-08] MEDS: Lactated Ringers 1,000 ML 100 ML IVCONT (06:50)
[2024-06-08 08:32] VITALS: BP 123/77; PULSE 85; RESP 16; TEMP 36.2; O2SAT 97
--- NOTE | 2024-06-08 08:33 | PM.OP ---
Brief Operative Note Date of Service: 06/08/24 Pre-op diagnosis: Screening Post-op diagnosis: other (Polyps) Procedure: Colonoscopy to the cecum with bx/removal of polyp and cold snare polypectomy Surgeon: Darrell Bay MD Anesthesia: MAC Was an Board Saw Runner used for this Procedure?: No Estimated blood loss (mL): 2.0 Pathology: other (A. Polyp at 12cm B. Rectal polyp) Condition: stable Disposition: PACU
--- NOTE | 2024-06-08 08:44 | OP_ITS ---
DATE OF SERVICE: 06/08/2024 SURGEON: Darrell Bay MD INDICATIONS: The patient presents for evaluation of colorectal cancer screening. Full consent has been obtained from him for this, including risks of bleeding and perforation. PREOPERATIVE DIAGNOSIS: Colorectal cancer screening. POSTOPERATIVE DIAGNOSIS: PROCEDURE PERFORMED: Colonoscopy to cecum with cold snare polypectomy, and biopsy removal of polyp. ESTIMATED BLOOD LOSS: COMPLICATIONS: ANESTHESIA: Monitored anesthesia care. ASSISTANTS: SPECIMENS: POSTOPERATIVE DIAGNOSES: Colorectal cancer screening, colon polyps, internal hemorrhoids. DESCRIPTION OF PROCEDURE: The patient was placed in left lateral decubitus position. The digital rectal exam revealed no abnormalities. The Olympus video pediatric colonoscope was entered into the rectum and advanced easily to the cecum. Once in the cecum, I did identify normal-appearing cecal pouch with appendiceal orifice and a normal-appearing ileocecal valve. The entire cecum and ileocecal valve appeared normal. The scope was slowly withdrawn assessing all mucosal surfaces carefully. Preparation was excellent. At 12 cm was an approximately 5 mm polyp, which was removed by cold snare polypectomy, recovered by suction. The polypectomy site appeared clean, without any sign of residual polyp nor bleeding. In the rectum was a 3 mm polyp, which was biopsied and completely removed with cold biopsy forceps. I did not visualize any other polyps, colitis, nor angiodysplasia. In the rectum, scope was retroflexed visualizing some small internal hemorrhoids, but no other pathology. The rectal mucosa appeared normal. The scope was straightened and withdrawn from the patient. He tolerated the procedure well and was returned to recovery area in stable condition. IMPRESSION: 1. Colon polyps. 2. Internal hemorrhoids. PLAN: The results of the pathology will be checked. If either of the polyp is a tubular adenoma, I would recommend a followup colonoscopy in 5 years. If they are both hyperplastic, I would recommend a followup coloscopy in 10 years. He will otherwise see me on a p.r.n. basis. He was advised not to use any aspirin and NSAIDs for 1 week. MD EZIO Davis/GERA / [id number]
[2024-06-08 08:45] VITALS: BP 130/85; PULSE 67; RESP 18; O2SAT 99
[2024-06-08 09:01] VITALS: TEMP 36.3
== END 2024-06-08 09:25 | disposition home or self-care (01) ==
PROVIDERS: PCP Nurse Practitioner Primary Care; Visit Provider Internal Medicine
PROC: 0DJD8ZZ Inspection of Lower Intestinal Tract, Via Natural or Artificial Opening Endoscopic (ICD-10-PCS; CPT 45378; principal; 2024-06-08 07:30)
DX: Z12.11 Encounter for screening for malignant neoplasm of colon (principal); D12.8 Benign neoplasm of rectum; K63.5 Polyp of colon; K64.8 Other hemorrhoids; I10 Essential (primary) hypertension; Z79.899 Other long term (current) drug therapy; Z87.891 Personal history of nicotine dependence
CPT/HCPCS: 45385; 45380; 88305; J2003; J2704

== ENCOUNTER 2025-06-02 07:14 | Outpatient (REF) | payer OTHER, SELFPAY ==
--- OUTSIDE RECORDS SUMMARY | 2024-06-08 02:30 | XMS_ITS ---
Author Organization [facility] Address [address] [place] [id number] Care Team Providers Care Medical Geneticist Name Role Phone EMILI HUYNH N.P. Primary Care Provider Darrell Elam [phone] REASON FOR VISIT SCREENING COLON Encounters Encounter Location Date Provider [place] [facility] [place] [address] [place] [phone] 06/08/2024 Darrell Bay Colon cancer scree marco a Z12.11 ; Colon polyps K63.5 and Other hemorrhoids K64.8 Assessments Encounter Date Diagnosis (ICD Code) Assessment Notes Treatment Notes Treatment Clinical Notes Section Notes 06/08/2024 Colon cancer screening (ICD-10 - Z12.11) 06/08/2024 Colon polyps (ICD-10 - K63.5) 06/08/2024 Other hemorrhoids (ICD-10 - K64.8) Plan Of Treatment No Information Progress Notes * HERRERALATOYA BONEMYAOB: [birth year] (45 yo M)Acc No.[id number]:06/08/2024 COLON WITH MAC Patient: SIMRAN CHAMBERLAIN Provider: Sabino Bay MD :1980 A ge:44 Y S ex:Male Date:06/08/2024 Address:[address] [place], [place] [id number] Pcp:EMILI HUYNH N.P. Subjective: * Chief Complaints: * 1 . SCREENING COLON. * Medical History: Objective: * Vitals: Assessment: * Assessment: 1. C olon cancer screening - Z12.11 (Primary) 2 . C olon polyps - K63.5? 3. O ther hemorrhoids - K64.8 Plan: * Treatment: * Procedure Codes: 4 5385 LESION REMOVAL COLONOSCOPY, Modifiers: 33 , 25641 COLONOSCOPY AND BIOPSY, Modifiers: 59 , 33 * * The named appointment provid er may or may not be the originator of this progress note, and it is not deemed complete until electronically signed by the appointment provider. Sign off status: Pending * Provider: Sabino Bay MD Date: 08/08/2023 Generated for Earline power/Gege/Luzitting on: 08/02/2024 07:17 AM EST
--- OUTSIDE RECORDS SUMMARY | 2025-06-02 07:18 | XMS_ITS | Patient Health Record ---
Author Organization [facility] Address [address] [place] [address] Care Team Providers Care Master Control Technician Name Role Phone EMILI HUYNH N.P. Primary Care Provider Darrell Elam [phone] Allergies Allergen (clinical drug ingredient) Drug/Non Drug Allergy documented on EMR Reaction Allergy Type Onset Date Status shrimp allergenic extract Shrimp (Diagnostic) Unknown Drug Allergy Active Results Component Value Reference Range Notes Pathology (Not yet reviewed by provider) Interpretation: Performing Lab:[facility], [address] [place] [id number] Notes/Report: Reason For Referral No Information Medications Medication SIG (Take, Route, Frequency, Duration) Notes Start Date End Date Status Lisinopril-hydroCHLOROthia zide 20-25 MG Oral; Duration: 90 Active MiraLax (colon prep) 17 GM/SCOOP 1 238Gm bottle mixed with Gatorade or Crystal Light Orally begin at 5:00 p.m. the day before the procedure; Duration: 1 day 02/03/2024 Activ e Vitamin D3 50 MCG (1999) Oral; Duration: 90 Active Dulcolax (colon prep) 5 MG take at 3:00 p.m and 7:00p.m. Orally two tablets twice a day for one day; Duration: 1 day 02/03/2024 Active Melatonin 1 MG Oral; Duration: 90 Active Immunizations Vaccine Route Administration Date Status Comme nts Influenza Unknown 02/03/2024 Refused Social History Tobacco Use: Social History Observation Description Date Details (start date - stop date) Former Smoker NA - NA Tobacco Use/Smoking Question Answer Notes Patient is a former smoker Alcohol Screen Question Answer Notes Did you have a drink contain ing alcohol in the past year? Yes How often did you have a dri nk containing alcohol in the past year? Monthly or less (1 point) How many drinks did you have on a typical day when you were drinking in the past year? 1 or 2 drinks (0 point) How often did you have 6 or more drinks on one occasion in the past year? Never (0 point) Points 1 Interpretation Negative Section Notes: Nonsmoker; no sig alcohol Problems Problem Type SNOMED Code ICD Code Onset Dates Problem Status W/U Status Risk Notes Problem Colon cancer screening (914895354) Colon cancer screening (Z12.11) Active confirmed Problem Pre-procedure evaluation check (620951864) Encounter for other preprocedural examination (Z01.818) Active confirmed Encounters Encounter Location Date Provider Diagnosis [facility] [place] [address] [place] [phone] 06/08/2024 Darrell Bay Colon cancer scree marco a Z12.11 ; Colon polyps K63.5 and Other hemorrhoids K64.8 Assessments Encounter Date Diagnosis (ICD Code) Assessment Notes Treatment Notes Treatment Clinical Notes Section Notes 06/08/2024 Colon cancer screening (ICD-10 - Z12.11) 06/08/2024 Colon polyps (ICD-10 - K63.5) 06/08/2024 Other hemorrhoids (ICD-10 - K64.8) Plan Of Treatment Pending Test Test Name Order Date Pathology 06/08/2024 Future Test Test Name Order Date COLONOSCOPY 02/03/2024 Insurance Providers Payer Name Payer Address Payer Phone Subscriber Number Group Number Insured Name Patient Relationship to Insured Coverage Start Date Coverage End Date [facility] [address] [address] [place], [place] [id number] SIMRAN HERRERA Self - patient is the insured Medical (General) History Medical History History ICD Code Denies AL,DM,CVA,Lung disease,renal dise ase HTN Surgical History Surgery Date(Month/Year)
--- OUTSIDE RECORDS SUMMARY | 2025-06-02 07:18 | XMS_ITS | Clinical Summary ---
Author Organization [employer] Address [address] [place] [address] [address] [place] [address] Care Team Providers Care Reed Press Feeder Name Role Phone Ritika Mederos Primary Care Provider [phone] Allergies Active Allergy Reactions Criticality Noted Date Comments Shrimp Flavor Agent (Non-Screening) 08/23/2024 Medications * This document contains information received from the source organization and may not represent a complete record from that organization. ibuprofen 600 MG tabletIndication s:Pain TAKE 1 TABLET BY MOUTH THREE TIMES A DAY NEEDED WITH FOOD 60 tablet 3 Active lisinopril-hydro CHLOROthiazide 20-25 MG tabletIndication s:Essential hypertension TAKE 1 TABLET BY MOUTH EVERY DAY 90 tablet 3 5 Active melatonin tabletIndication s:Difficulty sleeping TAKE 1 TABLET BY MOUTH DAILY 30 MIN-1HOUR BEFORE SLEEP 90 tablet 1 5 Active melatonin tabletIndication s:Difficulty sleeping TAKE 1 TABLET BY MOUTH DAILY 30 MIN-1HOUR BEFORE SLEEP 90 tablet 1 5 025 Discontinued Active Problems Problem Noted Date Diagnosed Date Encounter for counseling 10/29/2023 Vitamin D deficiency 08/12/2018 Essential hypertension 02/28/2016 Encounters Date Type Department Care Team Description 05/10/2025 Refill [facility] [address] [place] [address] Ritika Mederos ANP Difficulty sleeping 04/20/2025 Telephone [facility] [address], [place] [phone] Ritika Mederos ANP sammy recall 03/16/2025 Telephone [facility] [address] [place], [place] [phone] Ritika Mederos ANP sleep study order 03/07/2025 9:45 AM EDT Office Visit [facility] [address] [place] [phone] Ritika Mederos ANP Healthcare maintenance (Primary Dx); Daytime somnolence; Witnessed episode of apnea; Essential hypertension 03/07/2025 Travel 03/06/[address] [address] Ritika Mederos ANP Chart Prep 03/06/2025 Telephone [facility] [address] [place] [address] Ritika Mederos ANP Insurance from Last 3 Months Immunizations Immunization Administration Dates Next Due Hep A, Adult 08/07/2010,10/07/2006 Hep B, adult 03/01/2007,11/06/2006,10/07/2006 Influenza injectable quadriv alent preservative free 08/12/2018 Influenza, Split (incl. zion fied surface antigen) 08/26/2013 TD (adult), 2 Lf tetanus tox oid, preservative free, adsorbed 08/06/2006 Td (adult), 5 Lf tetanus tox oid, preservative free, adsorbed 03/04/2017 Tdap 08/07/2010 Family History Medical History Relation Name Comments Cancer Brother gastric cancer Relation Name Status Comments Brother Social History Tobacco Use Types Packs/Day Years Used Date Smoking Tobacco: Former Cigarettes Q uit: 2019 Passive Smoke Exposure: Past Smokeless Tobacco: Never Tobacco Cessation:Counseling Given: Not Answered Comments:Smoked 1/2 PPD for 23 yrs (from age [age]) Alcohol Use Standard Drinks/Week Comments Yes 0 (1 standard drink = 0.6 oz pur e alcohol) occasionally Depression Answer Date Recorded Patient Health Questionnaire-9 Score 8 03/07/2025 Patient Health Questionnaire-9 Score 8 03/07/2025 Last PHQ-9: Questionnaire Data Not on file 0 03/07/2025 Housing Stability Answer Date Recorded What is your housing situation today? I have gustavo douglass 03/07/[address] you li ve. Do you have problems with any of the following? None of the above 03/07/2025 Food Insecurity Answer Date Recorded Within the past 12 months, y ou worried that your food would run out before you got money to buy more: Never True 03/07/2025 Within the past 12 months,th e food you bought just didn't last and you didn't have enough money to get more: Never True Transportation Answer Date Recorded In the past 12 months, has l ack of transportation kept you from medical appts, meetings, work or from getting things needed for daily living? No 03/07/2025 Utilities Answer Date Recorded In the past 12 months, has t he electric, gas, oil or water company threatened to shut off services in your home? No 03/07/2025 Depression Answer Date Recorded Patient Health Questionnaire-2 Score 1 03/07/2025 Internet Access Answer Date Recorded Internet Access Q1 Yes 03/07/2025 Internet Access Q2 Not on file 03/07/2025 Sex and Gender Information Value Date Recorded Sex Assigned at Male 05/19/2022 10:15 AM EDT Legal Sex Male 10:15 AM EDT Gender Identity Male 05/19/2022 10:15 AM EDT Sexual Orientation Straight 05/19/2022 10 :15 AM EDT Last Filed Vital Signs Vital Sign Reading Time Taken Comments Blood Pressure 138/98 03/07/2025 10:24 AM EDT Pulse 80 03/07/2025 9:50 AM EDT Temperature 36.4 C (97.6 F) 03/07/2025 9:50 AM EDT Respiratory Rate 22 03/07/2025 9:50 AM EDT Oxygen Saturation - - Inhaled Oxygen Concentration - - Weight 102 kg (225 lb 3.2 oz) 03/07/2025 9:50 AM EDT Height 175.3 cm (5' 9 ) 03/07/2025 9:50 AM EDT Body Mass Index 33.26 03/07/2025 9:50 AM EDT Plan of Treatment Upcoming Encounters Date Type Department Care Team (Late st Contact Info) Description 07/07/2025 1:30 PM EST Office Visit [facility] [address], [place] [phone] Ritika Mederos ANP [address] [place], [place] [phone] Health Maintenance Due Date Last Done Comments CT Colonography 1978 FIT DNA/Cologuard 1978 FIT 1978 FOBT 1978 Sigmoidoscopy 1978 Family Planning (PISQ) 1993 COVID-19 Vaccine (1 - 2024-2 6 season) 2025 Influenza Vaccine (#1) 2025 9, 08/26/2013 Alcohol/Substance Use Screening 03/07/2026 03/07/2025 Depression Screening 03/07/2026 03/07/2025, 03/07/2025 Disability Screening 03/07/2026 03/07/2025 SDOH Screening 03/07/2026 03/07/2025 Tobacco Screening 03/07/2026 03/07/2025 DTaP/Tdap/Td Vaccines (3 - T d or Tdap) 03/04/2027 03/04/2017, 08/07/2010, 08/06/2006 Zoster Vaccines (1 of 2) 2028 Lipid Panel 11/10/2028 11/11/2023, 12/19/2021 Colonoscopy 06/11/2029 06/11/2024 Colorectal Cancer Screening 06/11/2029 RSV Patients and Patients Aged 60 years or older (1 - 1-dose 75+ series) 2053 Hepatitis B Vaccines Completed 03/01/2007, 11/06/2006, 10/07/2006 Hepatitis A Vaccines Aged Out 08/07/2010, 10/07/2006 No longer eligible based on patient's age to complete this topic HIV Screening Completed 12/19/2021 Hepatitis C Screening Completed 12/19/2021 HIB Vaccines Aged Out No longer eligi ble based on patient's age to complete this topic HPV Vaccines Aged Out No longer eligi ble based on patient's age to complete this topic IPV Vaccines Aged Out No longer eligi ble based on patient's age to complete this topic Meningococcal B Vaccine Aged Out No l onger eligible based on patient's age to complete this topic Meningococcal Vaccine Aged Out No mariah sonia eligible based on patient's age to complete this topic Pneumococcal Vaccine: Pediatrics (0 to 5 Years) and At-Risk Patients (6 to 49) Years Aged Out No longer eligible b ased on patient's age to complete this topic RSV under 20 months Aged Out No longe r eligible based on patient's age to complete this topic Rotavirus Vaccines Aged Out No longer eligible based on patient's age to complete this topic Procedures Procedure Name Priority Date/Time Associated Diagnosis Comments COLONOSCOPY Routine 06/11/2024 LIPID PANEL, STANDARD Routine 11/11/2023 10:51 AM EDT Lipid screening ZZZ HISTORICAL HEPATITIS C ANTIBODY RFLX Routine 12/19/2021 3:03 PM EDT ZZZ HISTORICAL HIV AB/AG Routine 12/19/2021 3:03 PM EDT from Last 3 Months or Most Recently Relevant to Health Maintenance Results * Colonoscopy (06/11/2024) Colonoscopy Normal Normal Narrative Lynn Lopez - 06/11/2024 Pathology results : one hyperplastic one tubular adenoma . Recommended repeat 5 years Historical Provider MD HEALTH MAINTENANCE Final Result * (ABNORMAL) Lipid Panel, Standard (11/11/2023 10:51 AM EDT) Triglycerides 80 <150 mg/dL [facility] Comment:Desirable Triglyceri de: less than 150 mg/dLBorderline High Triglyceride 150-199 mg/dLHigh Triglyceride: 200-499 mg/dLVery High Triglyceride: greater than or equal to 5OO mg/dL Cholesterol 198 <200 mg/dL [facility] Comment:Desirable Cholestero l: less than 200 mg/dLBorderline High Cholesterol: 200-239 mg/dLHigh Cholesterol: greater than 239 mg/dL LDL Cholesterol Calculated 144(H) <100 mg/dL [facility] Comment:Desirable LDL: less than 100 mg/dLNear Optimal/Above Optimal LDL: 110- 129 mg/dLBorderline High LDL: 130-159 mg/dLHigh LDL: 160-189 mg/dLVery High LDL: greater than or equal to 190 mg/dL HDL Cholesterol 38(L) >40 mg/dL [facility] Comment:Desirable HDL: great er than 40 mg/dL Note: This HDL assay may give artificially low results in patients with liver disease. Blood Venous blood specimen / Unknown 11/11/2023 10:51 AM EDT 11/11/2023 10:51 AM EDT Ritika COOK LAB BLOOD ORDERABLES Final Resul t Performing Organization Address City/[facility] Co de Phone Number [facility] [address] [place] [address] [phone] * HEPATITIS C ANTIBODY RFLX (12/19/2021 3:03 PM EDT) Pathologist [facility] Hepatitis C Antibody Nonreactive Nonreactive [facility] Comment: Antibodies to HCV not detected; does not exclude early acute HCV infection. 12/19/2021 3:03 PM EDT Ritika Mederos ANP HISTORICAL/NON ORDERABLE LABS Fi nal Result Performing Organization Address [facility] [address] * HIV AB/AG (12/19/2021 3:03 PM EDT) Pathologist [facility] HIV AB/AG Nonreactive Nonreactive [facility] Comment: HIV-1 p24 Ag and/or HIV-1/HIV-2 Ab not detected. A test result that is nonreactive does not exclude the possibility of exposure to or infection with HIV-1 and/or HIV-2. Nonreactive results in this assay for individuals with prior exposure to HIV-1 and/or HIV-2 may be due to antigen and antibody levels that are below the limit of detection of this assay. The [facility] Admissions Consultant HIV Ag/Ab Combo assay result and supplemental assay results should be interpreted in conjunction with the patient's clinical presentation, history and other laboratory results. If the results are inconsistent with clinical evidence, additional testing is suggested to confirm the result. 12/19/2021 3:03 PM EDT us Ritika Mederos ANP HISTORICAL/NON ORDERABLE LABS Fi nal Result Performing Organization Address [facility] de Phone Number [facility] [address] from Last 3 Months or Most Recently Relevant to Health Maintenance Insurance [facility] 3 Care Teams Reed Press Feeder Relationship Specialty Start Date End Date Ritika Mederos ANP [address] [place] [phone] PCP - General Family Medicine 08/29/20
--- OUTSIDE RECORDS SUMMARY | 2025-06-02 07:18 | XMS_ITS | Encounter Summary ---
Author Organization [employer] Address [address] [facility] [address]t [place] [address] Care Team Providers Care Restorer [employer] Name Role Phone Ritika Mederos Primary Care Provider [phone] Encounter Details Date Type Department Care Team (Late st Contact Info) Description 01/06/2023 Orders Only [facility] [address] [place] [address] Gloria Frias LPN Social History Tobacco Use Types Packs/Day Years Used Date Smoking Tobacco: Never Assessed Sex and Gender Information Value Date Recorded Sex Assigned at Male 05/19/2022 10:15 AM EDT Legal Sex Male 10:15 AM EDT Gender Identity Male 05/19/2022 10:15 AM EDT Sexual Orientation Straight 05/19/2022 10 :15 AM EDT documented as of this encounter Plan of Treatment Upcoming Encounters Date Type Department Care Team (Late st Contact Info) Description 07/07/2025 1:30 PM EST Office Visit [facility] [address] [place] [address] Ritika Mederos ANP [address] [place] [address] documented as of this encounter Procedures Procedure Name Priority Date/Time Associated Diagnosis Comments D DIMER HIGH SENSITIVITY Routine 03/10/2023 1:08 PM EDT HIGH SENSITIVITY TROPONIN I Routine 03/10/2023 1:08 PM EDT CBC WITH AUTO DIFFERENTIAL Routine 03/10/2023 1:08 PM EDT PROTHROMBIN TIME-INR Routine 03/10/2023 1:08 PM EDT B TYPE NATRIURETIC PEPTIDE (BNP) Routine 03/10/2023 1:08 PM EDT LIPASE Routine 03/10/2023 1:08 PM EDT HEPATIC FUNCTION PANEL Routine 03/10/2023 1:08 PM EDT BASIC METABOLIC PANEL Routine 03/10/2023 1:08 PM EDT documented in this encounter Results * D Dimer High Sensitivity (03/10/2023 1:08 PM EDT) [facility] D Dimer High Sensitivity <150 NG/ML [facility] Comment:D-DIMER HS REFERENCE RANGENote: Our assay reports D-Dimer Units (D- DU).The cut-off value for venous thromboembolic (VTE) disease is230 ng/mL. This value has a very high negative predictivevalue when the patient has a low to moderate clinicalprobability of VTE.The upper limit of normal is 243 ng/mL. 03/10/2023 1:08 PM EDT 03/10/2023 1:12 PM EDT us Generic External Data Provider LAB BLOOD ORDERAB LES Final Result [facility] [address] [place] [phone] * High Sensitivity Troponin I (03/10/2023 1:08 PM EDT) [facility] TROPONIN I HIGH SENSITIVITY <2.7 <3.5 - 35.0 ng/L [facility] Comment:The Ramos high sens itivity Troponin-I results should beused in conjunction with other diagnostic information suchas ECG, clinical observations and information, and patientsymptoms to aid in the diagnosis of [place]. 03/10/2023 1:08 PM EDT 03/10/2023 1:12 PM EDT [facility] External Provider LAB BLO OD ORDERABLES Final Result Performing Organization Address [facility] Co de Phone Number [facility] [address] [place] [address] [phone] * B Type Natriuretic Peptide (BNP) (03/10/2023 1:08 PM EDT) [facility] B Type Natriuretic Peptide <10 <100 pg/mL [facility] Comment:For those patients w ho are being treated with Natrecor(nesiritide, recombinant BNP), BNP testing should beperformed at least two hours post treatment in order toensure that only endogenous levels of BNP are detected. 03/10/2023 1:08 PM EDT 03/10/2023 1:12 PM EDT [facility] External Provider LAB BLO OD ORDERABLES Final Result Performing Organization Address [facility] Co de Phone Number [facility] [address] [place] [address] [phone] * Lipase (03/10/2023 1:08 PM EDT) [facility] Lipase 32 8 - 78 U/L [facility] 03/10/2023 1:08 PM EDT 03/10/2023 1:12 PM EDT Generic External Data Provider LAB BLOOD ORDERAB LES Final Result Performing Organization Address [facility] Co de Phone Number [facility] [address] [place] [address] [phone] * (ABNORMAL) Basic Metabolic Panel (03/10/2023 1:08 PM EDT) [facility] Sodium 141 135 - 145 mmol/L [facility] Potassium 3.7 3.3 - 5.1 mmol/L [facility] Chloride 105 96 - 108 mmol/L [facility] Carbon Dioxide 27 22 - 29 mmol/L [facility] Anion Gap 13 12 - 20 [facility] Urea Nitrogen (BUN) 19(H) 9 - 16 mg/dL [facility] Creatinine, Serum 1.03 0.5 - 1.4 mg/dL [facility] Creatinine Clr Calc Pharmacy 106.6 [facility] Comment:eGFR (calculated fro m the MDRD study equation) and eCrCl(calculated from the Cockcroft-Gault equation) are based ondifferent parameters and may not yield comparable results.If eCrCl result is absurd, please check patient'sheight/weight. Estimated Glomerular Filt Rate >60 [facility] Comment:NOTE: For -Am erican individuals, multiply the result by 1.210.Chronic Kidney Disease: Estimated GFR < 60 mL/min/1.10m0Vkwzca Kidney Disease: Estimated GFR < 15 mL/min/1.73m2 Glucose 126(H) 60 - 115 mg/dL [facility] Calcium 10.2 8.4 - 10.2 mg/dL [facility] 03/10/2023 1:08 PM EDT 03/10/2023 1:12 PM EDT us Generic External Data Provider LAB BLOOD ORDERAB LES Final Result [facility] [address] [place] [address] [phone] * (ABNORMAL) Hepatic Function Panel (03/10/2023 1:08 PM EDT) Bilirubin, Total 0.5 0.0 - 1.0 mg/dL [facility] Bilirubin, Direct 0.2 0.0 - 0.5 mg/dL [facility] Aspartate Amino Transferase 25 5 - 37 U/L [facility] Alanine Aminotransferase 31 0 - 40 U/L [facility] Total Protein 8.7(H) 6.5 - 8.0 g/dL [facility] Albumin Level 4.7 3.5 - 5.0 g/dL [facility] Alkaline Phosphatase 56 39 - 117 U/L [facility] 03/10/2023 1:08 PM EDT 03/10/2023 1:12 PM EDT [facility] External Provider LAB BLO OD ORDERABLES Final Result Performing Organization Address [facility] de Phone Number [facility] [address] [place] [phone] * Prothrombin Time-INR (03/10/2023 1:08 PM EDT) Prothrombin Time 11.7 11.1 - 13.3 SEC [facility] INTERNATIONAL NORM RATIO 1.0 0.9 - 1.1 [facility] Comment:INTERNATIONAL NORMAL IZED RATIO (INR) REFERENCE RANGES Reference RangeFor patients not on anticoagulant therapy: 0.9 - 1.1INR ranges for oral anticoagulanttherapy:For prevention and treatment of venous thrombosis and pulmonary embolism: 2.0 - 3.0For acute myocardial infarction with aspirin therapy: 2.0 - 3.0For acute myocardial infarction without aspirin therapy: 3.0 - 4.0For patients with mechanical prosthetic heart valves: 2.5 - 3.5 03/10/2023 1:08 PM EDT 03/10/2023 1:12 PM EDT [facility] External Provider LAB BLO OD ORDERABLES Final Result Performing Organization Address [facility] de Phone Number [facility] [address] [place] [phone] * (ABNORMAL) CBC auto differential (03/10/2023 1:08 PM EDT) White Blood Count 7.4 4.8 - 10.8 X10*3/uL [facility] Red Blood Count 4.88 4.60 - 5.80 X10*6/uL [facility] Hemoglobin 14.1 14.0 - 18.0 g/dl [facility] Hematocrit 41.2(L) 42.0 - 52.0 % [facility] Mean Corpuscular Volume 84.4 80.0 - 98.0 fL [facility] Mean Corpuscular Hemoglobin 28.9 27.0 - 33.0 pg [facility] Mean Corpuscular HGB Conc 34.2 31.0 - 36.0 g/dl [facility] Red Cell Distribution Width 13.2 11.0 - 16.0 % [facility] Platelet Count 236 160 - 400 X10*3/uL [facility] Mean Platelet Volume 10.4 9.4 - 12.4 fL [facility] Neutrophils Percent Auto 57.0 45 - 73 % [facility] Imm Gran Pct Auto 0.4 0.0 - 0.4 % [facility] Lymphocytes Percent Auto 31.7 20 - 40 % [facility] Monocytes Percent Auto 9.1 2 - 11 % [facility] Eosinophils Percent Auto 1.0 0 - 4 % [facility] Basophils Percent Auto 0.8 0 - 2 % [facility] NRBC Pct Auto 0.0 0.0 - 0.2 /100WBC [facility] Neutrophils Absolute Auto 4.2 2.0 - 8.3 x10*3/uL [facility] Imm Gran Abs Auto 0.03 0.00 - 0.03 X10*3/uL [facility] Lymphocytes Absolute Auto 2.3 1.2 - 4.9 X10*3/uL [facility] Monocytes Absolute Auto 0.7 0.1 - 1.2 X10*3/uL [facility] Eosinophils Absolute Auto 0.1 0.0 - 0.4 X10*3/uL [facility] Basophils Absolute Auto 0.1 0.0 - 0.2 X10*3/uL [facility] NRBC Abs Auto 0.000 0.0 - 0.012 X10*3/uL [facility] 03/10/2023 1:08 PM EDT 03/10/2023 1:12 PM EDT us [facility] External Provider LAB BLO OD ORDERABLES Final Result [facility] [address] [place] [address] [phone] documented in this encounter Visit Diagnoses Not on filedocumented in this encounter Care Teams [employer] Relationship Specialty Start Date End Date Ritika Mederos ANP [address] [place] [address] PCP - General Family Medicine 08/29/20 documented as of this encounter
[2025-06-02 08:28] LABS: Anion Gap 12 (12-20); Blood Urea Nitrogen 16 mg/dL (9-16); Calcium 9.0 mg/dL (8.4-10.2); Carbon Dioxide 24 mmol/L (22-29); Chloride 110 mmol/L (96-108); Cholesterol 197 mg/dL (<200); Estimated Glomerular Filt Rate > 60; HDL Cholesterol 37 mg/dL (>40); Potassium 3.9 mmol/L (3.3-5.1); Sodium 142 mmol/L (135-145); Triglycerides 80 mg/dL (<150)
[2025-06-02 09:39] LABS: Microalbum/Creatinine Ratio Ur 6.2 ug/mg cr (<30)
== END 2025-06-02 07:15 | disposition home or self-care (01) ==
LOC: HO.LAB 07:14
PROVIDERS: PCP Nurse Practitioner Primary Care; Visit Provider Nurse Practitioner Primary Care
DX: Z00.00 Encounter for general adult medical examination without abnormal findings (principal); I10 Essential (primary) hypertension
CPT/HCPCS: 36415; 80048; 80061; 82043; 82570